=== PATIENT | female | born 1950 | race Caucasian/White ===

== ENCOUNTER 2022-03-17 17:56 | Inpatient (IN) ==
[2022-03-17 19:50] LABS: Basophils # 0.1 K/mcL (0.0-0.2); Basophils % 0.5 %; Eosinophils # 0.2 K/mcL (0.0-0.6); Eosinophils % 1.4 %; Hematocrit 38.9 % (35.3-44.9); Hemoglobin 12.9 g/dL (11.5-15.4); Immature Granulocytes % 0.6 % (0-4); Lymphocytes % 29.3 %; Mean Corpuscular HGB Conc 33.2 g/dL (31.6-35.5); Mean Corpuscular Hemoglobin 28.7 pg (28.0-33.3); Mean Corpuscular Volume 86.6 fL (83.0-100.0); Mean Platelet Volume 9.8 fL (9.4-12.4); Monocytes # 0.5 K/mcL (0.0-1.3); Monocytes % 4.4 %; Neutrophils # 6.6 K/mcL (1.6-8.9); Platelet Count 234 K/mcL (140-400); Red Blood Count 4.49 M/mcL (3.82-4.97); Red Cell Distribution Width 13.4 % (11.5-14.5); Segmented Neutrophils % 63.8 %; White Blood Count 10.4 K/mcL (4.3-11.1)
[2022-03-17 20:10] LABS: BUN/Creatinine Ratio 28 (6-26); Blood Urea Nitrogen 26 mg/dL (8-23); Calcium 9.6 mg/dL (8.6-10.3); Carbon Dioxide 30 mEq/L (23-29); Chloride 98 mEq/L (98-107); Glucose 140 mg/dL (70-105); Osmolality,Calculated 287 (280-300); Potassium 3.9 mEq/L (3.5-5.1); Sodium 135 mEq/L (136-145)
[2022-03-17 20:11] LABS: Troponin I < 0.03 ng/mL (< 0.04)
[2022-03-17] MEDS ORDERED: Aspirin 325 MG TABLET PO ONE (20:14)
[2022-03-17] MEDS ORDERED: Ondansetron 4 MG/2 ML VIAL IVP ONE (20:20)
[2022-03-17] MEDS ORDERED: Nitroglycerin 0.4 MG TAB.SUBL SL PRN (20:20)
[2022-03-17] MEDS ORDERED: Iopamidol - 370 500 ML MLS IVP ONE (21:53)
[2022-03-17] MEDS ORDERED: Dextrose Gel 15 GM/37.5 ML TUBE PO PRN ×2 (21:56)
[2022-03-17] MEDS ORDERED: D5% in Water 1,000 ML IVC PRN (21:56)
[2022-03-17] MEDS ORDERED: *HR* Dextrose 50 % in Water (Syg) 50 ML SYRINGE IVP PRN (21:56)
[2022-03-17] MEDS ORDERED: Naloxone 0.4 MG/ML INJ IVP PRN (22:02)
[2022-03-17] MEDS ORDERED: Prochlorperazine 10 MG/2 ML VIAL IVP ONE (22:04)
[2022-03-17] MEDS ORDERED: Morphine Sulfate 2 MG/ML SYRINGE IVP PRN (22:13)
[2022-03-17 22:56] LABS: Magnesium 1.8 mg/dL (1.6-2.6)
[2022-03-17] MEDS ORDERED: *HR* LORazepam 1 MG TABLET PO PRN (23:06)
[2022-03-17 23:09] LABS: Adenovirus Not Detected (Not Detect); Bordetella Pertussis Not Detected (Not Detect); Chlamydophila pneumoniae Not Detected (Not Detect); Coronavirus 229E Not Detected (Not Detect); Coronavirus HKU1 Not Detected (Not Detect); Coronavirus NL63 Not Detected (Not Detect); Coronavirus OC43 Not Detected (Not Detect); Human Metapneumovirus Not Detected (Not Detect); Human Rhinovirus/Enterovirus Not Detected (Not Detect); Influenza A Subtype 2009 H1 Not Detected (Not Detect); Influenza B Not Detected (Not Detect); Mycoplasma pneumoniae Not Detected (Not Detect); Parainfluenza Virus 1 Not Detected (Not Detect); Parainfluenza Virus 2 Not Detected (Not Detect); Parainfluenza Virus 3 Not Detected (Not Detect); Parainfluenza Virus 4 Not Detected (Not Detect); Respiratory Syncytial Virus Not Detected (Not Detect); SARS-CoV-2 Not Detected (Not Detect)
[2022-03-17] MEDS: Gabapentin 400 MG CAPSULE PO SCH (23:34)
[2022-03-17 23:47] LABS: Bilirubin,Urine Negative (Negative); Blood,Urine Negative (Negative); Clarity,Urine Clear (Clear); Color,Urine Light-Yellow (Yellow); Glucose,Urine (UA) Normal (Normal); Ketones,Urine Negative (Negative); Leukocyte Esterase,Urine Negative (Negative); Nitrite,Urine Negative (Negative); Protein,Urine Negative (Neg-Trace); Specific Gravity,Urine > 1.030 (1.010-1.025); Urobilinogen,Urine Normal (Normal)
[2022-03-18] MEDS: Insulin LISPRO 300 UNITS/3 ML VIAL SUBQ SCH ×4 (00:56→16:33)
[2022-03-18 02:35] LABS: Albumin/Globulin Ratio 1.7 (1.1-2.2); Bilirubin,Indirect 0.3 mg/dL (0.0-1.0); Bilirubin,Total 0.3 mg/dL (0.3-1.0); Globulin 2.3 g/dL (2.4-3.5); Potassium 3.9 mEq/L (3.5-5.1); Total Protein 6.3 g/dL (6.4-8.9)
[2022-03-18 02:38] LABS: Chol/HDL Ratio 6.2 (0-4.9)
[2022-03-18 02:41] LABS: INR 1.1; Prothrombin Time 11.9 Seconds (9.4-12.1)
[2022-03-18 02:45] LABS: Activated Partial Thrombo Time 33.5 Seconds (26.0-36.0)
[2022-03-18 02:49] LABS: Thyroid Stimulating Hormone 0.635 mcIU/mL (0.340-5.600)
[2022-03-18] MEDS: *HR* Heparin 5,000 UNIT/ML VIAL SQ SCH ×3 (06:06→20:40)
[2022-03-18] MEDS ORDERED: Regadenoson 0.4 MG/5 ML SYRINGE IVP ONE (07:33)
[2022-03-18 09:05] LABS: Hematocrit 39.3 % (35.3-44.9); Hemoglobin 13.1 g/dL (11.5-15.4); Mean Corpuscular HGB Conc 33.3 g/dL (31.6-35.5); Mean Corpuscular Hemoglobin 28.8 pg (28.0-33.3); Mean Corpuscular Volume 86.4 fL (83.0-100.0); Mean Platelet Volume 9.5 fL (9.4-12.4); Platelet Count 233 K/mcL (140-400); Red Blood Count 4.55 M/mcL (3.82-4.97); Red Cell Distribution Width 13.5 % (11.5-14.5); White Blood Count 8.9 K/mcL (4.3-11.1)
[2022-03-18] MEDS: Venlafaxine XR (24 HR) 75 MG CAP.ER.24H PO SCH (11:19)
[2022-03-18] MEDS: Loratadine 10 MG TABLET PO SCH (11:20)
[2022-03-18] MEDS: Aspirin Enteric Coated 81 MG Tablet PO SCH (11:20)
[2022-03-18] MEDS: Gabapentin 400 MG CAPSULE PO SCH ×3 (11:20→20:41)
[2022-03-18] MEDS: lisinopriL 5 MG TABLET PO SCH (11:20)
[2022-03-18] MEDS: hydroCHLOROthiazide 25 MG TABLET PO SCH (11:20)
[2022-03-18 19:48] LABS: Estimated Average Glucose 209 mg/dl; Hemoglobin A1C 8.9 %
[2022-03-19] MEDS ORDERED: traZODone 50 MG TABLET PO ONE (00:42)
[2022-03-19] MEDS: Insulin LISPRO 300 UNITS/3 ML VIAL SUBQ SCH ×5 (00:59→23:49)
[2022-03-19 02:31] LABS: Hematocrit 37.4 % (35.3-44.9); Hemoglobin 12.5 g/dL (11.5-15.4); Mean Corpuscular HGB Conc 33.4 g/dL (31.6-35.5); Mean Corpuscular Hemoglobin 28.8 pg (28.0-33.3); Mean Corpuscular Volume 86.2 fL (83.0-100.0); Mean Platelet Volume 9.9 fL (9.4-12.4); Platelet Count 227 K/mcL (140-400); Red Blood Count 4.34 M/mcL (3.82-4.97); Red Cell Distribution Width 13.2 % (11.5-14.5); White Blood Count 9.1 K/mcL (4.3-11.1)
[2022-03-19 02:48] LABS: Calcium 9.2 mg/dL (8.6-10.3); Potassium 3.9 mEq/L (3.5-5.1)
[2022-03-19] MEDS: *HR* Heparin 5,000 UNIT/ML VIAL SQ SCH ×3 (06:12→19:25)
[2022-03-19] MEDS: lisinopriL 5 MG TABLET PO SCH (08:30)
[2022-03-19] MEDS: Gabapentin 400 MG CAPSULE PO SCH ×3 (08:30→19:26)
[2022-03-19] MEDS: Aspirin Enteric Coated 81 MG Tablet PO SCH (08:30)
[2022-03-19] MEDS: Loratadine 10 MG TABLET PO SCH (08:30)
[2022-03-19] MEDS: hydroCHLOROthiazide 25 MG TABLET PO SCH (08:31)
[2022-03-19] MEDS: Venlafaxine XR (24 HR) 75 MG CAP.ER.24H PO SCH (08:31)
[2022-03-20] MEDS: *HR* Heparin 5,000 UNIT/ML VIAL SQ SCH ×2 (05:51→13:22)
[2022-03-20] MEDS: Insulin LISPRO 300 UNITS/3 ML VIAL SUBQ SCH ×2 (05:52→13:08)
[2022-03-20] MEDS: Aspirin Enteric Coated 81 MG Tablet PO SCH (07:36)
[2022-03-20] MEDS: Gabapentin 400 MG CAPSULE PO SCH (07:36)
[2022-03-20] MEDS: Loratadine 10 MG TABLET PO SCH (07:36)
[2022-03-20] MEDS: lisinopriL 5 MG TABLET PO SCH (07:37)
[2022-03-20] MEDS: Venlafaxine XR (24 HR) 75 MG CAP.ER.24H PO SCH (07:37)
[2022-03-20 07:51] VITALS: PULSE 57
[2022-03-20 11:10] VITALS: BP 124/66; TEMP 98; O2SAT 94
== END 2022-03-20 14:20 | disposition home or self-care (01) | DRG 313 ==
LOC: 3BNU 17:56 → EMEROOARM 17:56 → SUATTDRO 21:00 → 3BNU 21:49
PROVIDERS: ADMIT Student in an Organized Health Care Education/Training Program; ATTEND Student in an Organized Health Care Education/Training Program